=== PATIENT | female | born 1965 | race Two or more races ===

== ENCOUNTER 2016-09-05 17:34 | Emergency (ER) | payer MEDICAID ==
[2016-09-05] MEDS ORDERED: IPRATROPIUM/ALBUTEROL 3 ML DEYVIAL IH ONE (17:48)
[2016-09-05 17:49] VITALS: TEMP 98.1
[2016-09-05] MEDS ORDERED: NS 1,000 ML IV ONE ×2 (17:49)
[2016-09-05] MEDS ORDERED: IPRATROPIUM/ALBUTEROL 3 ML DEYVIAL ONE (17:49)
[2016-09-05] MEDS ORDERED: ONDANSETRON 4 MG/2 ML VIAL IVP ONE (17:49)
[2016-09-05] MEDS ORDERED: ONDANSETRON 4 MG/2 ML VIAL ONE (17:50)
--- NOTE | 2016-09-05 17:50 | EDPHY ---
H & P Time Seen by Provider: 09/05/16 17:36 HPI/ROS: CHIEF COMPLAINT: Vomiting, and can't walk HISTORY OF PRESENT ILLNESS: Patient was found down on the ground, by the [place] vomiting and could not walk after drinking a lot of alcohol. Patient arrives denying abdominal pain or nausea currently. Vomiting not with coffee grounds or blood. Symptoms moderate to severe. She is unable to give me a time of onset. She is unable to describe severity. REVIEW OF SYSTEMS: Eye: no change in vision ENT: no sore throat Cardiac: no chest pain or syncope Pulmonary: Chronic cough, unchanged Abdomen: Denies abdominal pain. Musculoskeletal: no back pain Skin: no rash Neuro: no headache Constitutional: no fever : no urinary symptoms A comprehensive 10 point review of systems is otherwise negative aside from elements mentioned in the history of present illness but limited by cause of the patient's intoxication. PAST MEDICAL HISTORY: Asthma and reactive airway disease. Patient states she takes Abilify and Seroquel but will not tell me which diagnosis these are to treat. When I asked her why she takes them she says "for my happiness." Social history: Admits to copious amounts of vodka today. Smoker. General Appearance: Sleepy but conversant and cooperative. Eyes: No scleral icterus. ENT, Mouth: Normal mucous membranes. Respiratory: Bilateral expiratory wheezes and rhonchi. Cardiovascular: Regular rate and rhythm. Gastrointestinal: Abdomen is soft and non tender. Neurological: Alert, slurred speech, follows commands. Face symmetric, normal movement and sensation in all extremities. Skin: Warm and dry, no rashes. Musculoskeletal: No peripheral edema and no joint swelling. Psychiatric: Not agitated. Emergency Department course/MDM: Noted to be hypoxic on arrival. DuoNeb, chest x-ray. Zofran 4 mg IV and 2 L normal saline for nausea and vomiting. Patient received Solu-Medrol 125 and continuous albuterol and Atrovent neb. 2225: Patient feels better, her speech is not slurred. She has no complaints. She tells me that she sometimes uses oxygen is an outpatient because her saturation is chronically low in the 80s. Currently she is not short of breath and is speaking in full sentences and is in good spirits and wants to be discharged. 2255: Oxygen saturation 89-90% on room air. Not dyspneic. This likely represents baseline for her, she thinks she can be safely discharged from a respiratory standpoint and I agree. Discharge with Albuterol MDI and prednisone burst. Smoking Status: Current every day smoker Constitutional: Initial Vital Signs Temperature (C) 36.7 C 09/05/16 17:34 Heart Rate 80 09/05/16 17:34 Respiratory Rate 16 09/05/16 17:34 Blood Pressure 97/72 L 09/05/16 17:34 O2 Sat (%) 92 09/05/16 17:34 O2 Delivery Mode Nasal Cannula O2 (L/minute) 3 Allergies/Adverse Reactions: aspirin Allergy (Verified 12/06/13 17:04) Home Medications: Medication Instructions Recorded Abilify 09/05/16 Prozac 20 MG (*) 09/05/16 Seroquel 09/05/16 predniSONE [prednisone 20mg (RX)] 20 mg PO Q12 #15 tab 09/05/16 Medical Decision Making - Diagnostics Imaging Results: Chest xray shows airways disease, no pneumonia or CHF. Imaging: I viewed and interpreted images myself Differential Diagnosis: Differential diagnosis considered for nausea and vomiting including but not limited to gastroenteritis, gastritis, appendicitis, and medication side effect. - Data Points Laboratory Results: Laboratory Results 09/05/16 18:01 09/05/16 17:45 Medications Given: Discontinued Medications Albuterol (Proventil Neb) 3 ml IH EDNOW ONE Stop: 09/05/16 20:31 Last Admin: 09/05/16 22:45 Dose: Not Given Albuterol (Proventil Neb) 3 ml IH EDNOW ONE Stop: 09/05/16 21:01 Last Admin: 09/05/16 22:45 Dose: Not Given Albuterol (Proventil Neb) 9 ml IH EDNOW ONE Stop: 09/05/16 21:11 Last Admin: 09/05/16 22:44 Dose: 9 ml Albuterol Sulfate (Proventil Inh Prepack) 1 mdi TAKEHOME EDNOW ONE Stop: 09/05/16 20:18 Last Admin: 09/05/16 22:47 Dose: 1 mdi Albuterol/Ipratropium (Duoneb) 3 ml IH EDNOW ONE Stop: 09/05/16 17:49 Last Admin: 09/05/16 18:03 Dose: 3 ml Chlordiazepoxide (Librium 25 Mg Prepack#6) 1 btl TAKEHOME EDNOW ONE Stop: 09/05/16 22:53 Last Admin: 09/05/16 22:56 Dose: 1 btl Sodium Chloride (Ns) 1,000 mls @ 0 mls/hr IV ONCE ONE PRN Reason: Wide Open Stop: 09/05/16 17:50 Last Admin: 09/05/16 18:04 Dose: 1,000 mls Sodium Chloride (Ns) 1,000 mls @ 0 mls/hr IV ONCE ONE PRN Reason: Wide Open Stop: 09/05/16 17:50 Last Admin: 09/05/16 18:05 Dose: 1,000 mls Methylprednisolone Sodium Succinate (Solu-Medrol) 125 mg IVP EDNOW ONE Stop: 09/05/16 17:54 Last Admin: 09/05/16 18:04 Dose: 125 mg Ondansetron HCl (Zofran) 4 mg IVP EDNOW ONE Stop: 09/05/16 17:50 Last Admin: 09/05/16 18:05 Dose: 4 mg Departure - Departure Disposition: Home, Routine, Self-Care Clinical Impression: Alcoholic intoxication Qualifiers: Complication of substance-induced condition: uncomplicated Qualified Code(s): F10.120 - Alcohol abuse with intoxication, uncomplicated COPD (chronic obstructive pulmonary disease) Qualifiers: COPD type: COPD with acute exacerbation Qualified Code(s): J44.1 - Chronic obstructive pulmonary disease with (acute) exacerbation Nausea & vomiting Qualifiers: Vomiting type: unspecified Vomiting Intractability: non-intractable Qualified Code(s): R11.2 - Nausea with vomiting, unspecified Condition: Good Instructions: Chlordiazepoxide (By mouth), Albuterol (By mouth), Alcohol Intoxication (ED) Referrals: Patient,NotPresent [Unknown] - As per Instructions [facility],. [Clinic] - As per Instructions Prescriptions: predniSONE [prednisone 20mg (RX)] 20 mg PO Q12 #15 tab
[2016-09-05] MEDS ORDERED: methylPREDNISolone SOD SUCC 125 MG/2 ML VIAL IVP ONE (17:53)
[2016-09-05 18:07] LABS: % IMMATURE GRANULYOCYTES 0.3 % (0.0-1.1); ABSOLUTE IMMATURE GRANULOCYTES 0.02 10^3/uL (0.00-0.10); ADD DIFF? NO; ADD MORPH? NO; ADD SCAN? NO; ATYPICAL LYMPHOCYTE FLAG 10 (0-99); FRAGMENT RBC FLAG 0 (0-99); HEMATOCRIT 46.1 % (38.0-47.0); HEMOGLOBIN 15.5 g/dL (12.6-16.3); LEFT SHIFT FLG 0 (0-99); LIPEMIA HEMOLYSIS FLAG 80 (0-99); MEAN CELL HEMOGLOBIN CONCENTR. 33.6 g/dL (32.4-36.7); MEAN CELL VOLUME 101.1 fL (81.5-99.8); MEAN PLATELET VOLUME 8.5 fL (8.7-11.7); PLATELET CLUMPS FLAG 0 (0-99); PLATELET COUNT 279 10^3/uL (150-400); RED BLOOD CELL COUNT 4.56 10^6/uL (4.18-5.33); RED CELL DISTRIBUTION WIDTH 12.8 % (11.5-15.2)
[2016-09-05 18:14] LABS: ANION GAP 16 mEq/L (8-16); CALCIUM 9.7 mg/dL (8.5-10.4); CARBON DIOXIDE 23 mEq/l (22-31); CHLORIDE 110 mEq/L (97-110); CREATININE 0.8 mg/dL (0.6-1.0); GLOMERULAR FILTRATION RATE > 60; GLUCOSE 93 mg/dL (70-100); POTASSIUM 4.2 mEq/L (3.5-5.2); SODIUM 149 mEq/L (134-144)
[2016-09-05 18:28] LABS: ETHANOL SERUM 353 mg/dL (0-10)
[2016-09-05] MEDS ORDERED: ALBUTEROL INH PREPACK MDI TAKEHOME ONE ×2 (20:17→22:46)
[2016-09-05] MEDS ORDERED: ALBUTEROL 3 ML DEYVIAL IH ONE ×3 (20:30→21:10)
[2016-09-05 20:34] VITALS: BP 126/75; PULSE 80; RESP 17; O2SAT 90
[2016-09-05] MEDS ORDERED: CHLORDIAZEPOXIDE 25MG PREPK#6 BTL TAKEHOME ONE (22:52)
== END 2016-09-05 23:10 | disposition home or self-care (01) ==
LOC: EDUNIT#
DX: F10.120 Alcohol abuse with intoxication, uncomplicated (principal); J44.1 Chronic obstructive pulmonary disease with (acute) exacerbation; F17.200 Nicotine dependence, unspecified, uncomplicated
CPT/HCPCS: 96374; G0480; J2405

== ENCOUNTER → 2017-11-05 | Outpatient (CLI) | payer MEDICAID ==
--- NOTE | 2017-11-08 12:26 | CPEEG ---
[f rep st] ELECTROENCEPHALOGRAM DATE OF STUDY: 11/05/2017 INTERPRETATION: This 4-hour video EEG recording is normal. There were no potentially epileptogenic abnormalities present in the awake or sleep recordings. During the video EEG monitoring session, the patient did not have any clinical events. If there is continued clinical concern for spells or seizures, then consideration for inpatient video EEG monitoring would be recommended. REPORT: This 4-hour video EEG contains 10 Hz alpha activity to the posterior head regions. There wa s no abnormal activation at rest or during photic stimulation hyperventilation. The patient became d rowsy and fell into sustained sleep during the study. There was no abnormal activation during drowsi ness, sleep, or during times of arousal. The patient did not have any clinical events during the vid eo EEG monitoring session. /[id number]/MODL
== END ==
LOC: FCPNEURO 10:25
PROVIDERS: ATTEND Psychiatry & Neurology Neurology
DX: R29.818 Other symptoms and signs involving the nervous system (principal)

== ENCOUNTER 2018-05-12 07:56 | Day surgery (SDC) | payer MEDICAID ==
[2018-05-12] MEDS ORDERED: LR 1,000 ML IV ONE (08:17)
[2018-05-12] MEDS ORDERED: LIDOCAINE 1% 2 ML INJ ID PRN (08:17)
[2018-05-12] MEDS ORDERED: ALBUTEROL 3 ML DEYVIAL ONE (08:43)
[2018-05-12] MEDS ORDERED: MAGNESIUM SULFATE 1 GM/2 ML VIAL ONE (08:50)
--- NOTE | 2018-05-12 08:50 | PDGENHP ---
History & Physical Chief Complaint: Gerd and episode of hematemisis History of Present Illness: COPD, history of dysphagia and GERD. Had episode of hematemesis. Cardiorespiratory Assessment: Lungs clear. ardiac normal s1s2
[2018-05-12] MEDS ORDERED: LIDOCAINE 2% 5 ML SDV ONE (08:55)
[2018-05-12] MEDS ORDERED: PROPOFOL/EMULSION 500 MG/50 ML BOTTLE IV ONE (08:56)
[2018-05-12] MEDS ORDERED: MIDAZOLAM 2 MG/2 ML VIAL ONE ×2 (08:56→09:15)
[2018-05-12] MEDS ORDERED: GLYCOPYRROLATE 0.2 MG/1 ML VIAL ONE (08:57)
--- NOTE | 2018-05-12 09:01 | PDANEPAE ---
ANE Past Medical History - Cardiovascular History Hx Hypertension: No Hx Arrhythmias: Yes Hx Chest Pain: Yes Hx Coronary Artery / Peripheral Vascular Disease: No Hx CHF / Valvular Disease: No Hx Palpitations: No Cardiovascular History Comment: states used to have a murmur but is now gone - Pulmonary History Hx COPD: Yes Hx Asthma/Reactive Airway Disease: Yes Hx Recent Upper Respiratory Infection: No Hx Oxygen in Use at Home: No Hx Sleep Apnea: No Sleep Apnea Screening Result - Last Documented: Negative Pulmonary History Comment: hx pneumonia - Neurologic History Hx Cerebrovascular Accident: No Hx Seizures: Yes Hx Dementia: No Neurologic History Comment: last seizure about 2 weeks ago, states only passes out but no shaking - Endocrine History Hx Diabetes: No - Renal History Hx Renal Disorders: No - Liver History Hx Hepatic Disorders: No - Neurological & Psychiatric Hx Hx Neurological and Psychiatric Disorders: Yes Neurological / Psychiatric History Comment: depression, anxiety, bipolar, schizophrenia - Cancer History Hx Cancer: No - Congenital Disorder History Hx Congenital Disorders: No - GI History Hx Gastrointestinal Disorders: Yes Gastrointestinal History Comment: GERD. frequent nausea - Chronic Pain History Chronic Pain: No ANE Review of Systems Review of Systems: - Exercise capacity METS (RN): 3 METS ANE Patient History - Allergies Allergies/Adverse Reactions: aspirin Allergy (Verified 12/05/17 16:03) Heartburn caffeine Allergy (Verified 05/12/18 08:38) heartburn cocoa [chocolate] Allergy (Verified 05/12/18 08:38) heartburn - Home Medications Home Medications: FLUoxetine [Prozac 20 MG (*)] 40 mg PO DAILY 12/05/17 [Last Taken 1 Day Ago ~] Ipratropium/Albuterol [Combivent Respimat Inhal [place](*)] inh IH QID PRN [Last Taken 1 Day Ago ~05/11/18] Lurasidone HCl [Latuda] mg PO DAILY@1800 12/05/17 [Last Taken 1 Day Ago ~] QUEtiapine FUMARATE [Seroquel 50 mg (*)] mg PO HS 12/05/17 [Last Taken 1 Day Ago ~05/11/18] lamoTRIgine [LamICTAL 100 MG (*)] mg PO BID 12/05/17 [Last Taken 1 Day Ago ~] Advair 250/50 (*) 05/12/18 [Last Taken 1 Day Ago ~05/11/18] Albuterol 05/12/18 [Last Taken 1 Day Ago ~05/11/18] Prozac 10 MG (*) 05/12/18 [Last Taken 1 Day Ago ~05/11/18] - NPO status NPO Since - Liquids (Date): 05/10/18 NPO Since - Solids (Date): 05/11/18 NPO Since - Solids (Time): 23:00 - Smoking Hx Smoking Status: Current every day smoker - Family Anes Hx Family Hx Anesthesia Complications: none ANE Labs/Vital Signs - Vital Signs Blood Pressure: 114/75 Heart Rate: 77 Respiratory Rate: 18 O2 Sat (%): 87 Height: 162.56 cm Weight: 72.575 kg ANE Physical Exam - Airway Neck exam: decreased ROM Mallampati Score: Class 2 Mouth exam: poor dentition, small mouth opening - Pulmonary Pulmonary: no respiratory distress, expiratory wheeze - Cardiovascular Cardiovascular: regular rate and rhythym, no murmur, rub, or gallop - ASA Status ASA Status: IV ANE Anesthesia Plan Anesthesia Plan: GA with mask
[2018-05-12 09:16] LABS: PLATELET COUNT 193 10^3/uL (150-400)
[2018-05-12] MEDS ORDERED: ONDANSETRON 4 MG/2 ML VIAL IVP PRN (09:21)
[2018-05-12] MEDS ORDERED: LR 500 ML IV PRN (09:21)
[2018-05-12] MEDS ORDERED: ALBUTEROL 3 ML DEYVIAL IH PRN (09:21)
[2018-05-12] MEDS ORDERED: NALOXONE HCL 0.4 MG/ML INJ IVP PRN (09:21)
[2018-05-12] MEDS ORDERED: fentaNYL 100 MCG/2 ML INJ IVP PRN (09:21)
--- NOTE | 2018-05-12 09:39 | GIREPORT ---
[facility] - Endoscopy Department Patient Name: Aliza Carmona Procedure Date: 05/12/2018 8:33 AM Patient Type: Outpatient Attending MD/ ER Physician: Chele Arriola MD Procedure: Upper GI endoscopy Indications: Dysphagia, Heartburn, Esophageal reflux, Hematemesis, Diarrhea Providers: Chele Arriola MD Medicines: Propofol per Anesthesia Complications: No immediate complications. Description of Procedure: After obtaining informed consent, the endoscope was passed under direct vision. Throughout the procedure, the patient's blood pressure, pulse, and oxygen saturations were monitored continuously. The Endoscope was intro duced through the mouth, and advanced to the second part of duodenum. The [facility] er GI endoscopy was accomplished without difficulty. The patient tolerated th e procedure. Moderate Sedation: Propofol per anesthesia Findings: One benign-appearing, intrinsic stenosis was found 35 to 40 cm from the incisors. This stenosis was moderately severe (circumferential scarring or stenosis; an endoscope may pass) and. The stenosis was traversed. A guidewire was placed and the scope was withdrawn. Dilation was performe d with a Savary dilator with no resistance at 45 Fr. Biopsies were taken with a cold forceps for histology. A small hiatal hernia was present. Diffuse moderate inflammation characterized by congestion (edema) and erythema was found in the entire examined stomach. Biopsies were taken with a cold forceps for histology. The examined duodenum was normal. Biopsies for histology were taken wit h a cold forceps for evaluation of celiac disease. Estimated Blood Loss: Estimated blood loss: none. Post Op Diagnosis: - Benign-appearing esophageal stenosis. Dilated. Biopsied. - Small hiatal hernia. - Chronic gastritis. Biopsied. - Normal examined duodenum. Biopsied. Recommendation: - Patient has a contact number available for emergencies. The signs and symptoms of potential delayed complications were discussed with the pat ient. Return to normal activities tomorrow. Written discharge instructions we re provided to the patient. - Resume previous diet. - Continue present medications. - Use Nexium (esomeprazole) 40 mg PO daily. - Await pathology results. - Follow an antireflux regimen. - Return to primary care physician. - Thank you for allowing me to participate in the care of your patient. Attending Participation: I personally performed the entire procedure. Chele Arriola MD Chele Arriola MD 05/12/2018 9:38:57 AM This report has been signed electronicallyStjina Arriola MD Number of Addenda: 0 Note Initiated On: 05/12/2018 8:33 AM [email or web address]
--- NOTE | 2018-05-12 09:52 | POSTANESTH ---
Post Anesthetic Evaluation Cardiovascular Status: Normal, Stable, Similar to Pre-Op Cond Respiratory Status: Normal, Stable, Similar to Pre-op Cond. Pain Control: Adequate, Prn Tx Ordered Nausea/Vomiting Control: Adequate, Prn Tx Ordered Complications Possibly Related to Anesthesia: None Noted
[2018-05-12 11:54] VITALS: BP 127/79
== END 2018-05-12 11:53 | disposition home or self-care (01) ==
LOC: FSGY 07:56
PROVIDERS: ATTEND Internal Medicine Gastroenterology
PROC: 0DB98ZX Excision of Duodenum, Via Natural or Artificial Opening Endoscopic, Diagnostic (ICD-10-PCS; principal; 2018-05-12 09:30)
PROC: 0DB58ZX Excision of Esophagus, Via Natural or Artificial Opening Endoscopic, Diagnostic (ICD-10-PCS; principal; 2018-05-12 09:30)
PROC: 0DB68ZX Excision of Stomach, Via Natural or Artificial Opening Endoscopic, Diagnostic (ICD-10-PCS; principal; 2018-05-12 09:30)
DX: K22.2 Esophageal obstruction (principal); K44.9 Diaphragmatic hernia without obstruction or gangrene; K21.9 Gastro-esophageal reflux disease without esophagitis; J44.9 Chronic obstructive pulmonary disease, unspecified; R13.10 Dysphagia, unspecified
CPT/HCPCS: J2250; J2704; J3475; J7613